=== PATIENT | female | born 1935 | race Caucasian/White ===

== ENCOUNTER 2016-10-22 12:22 | Emergency (ER) | payer OTHER, MEDICAID ==
[~2016-10-22] VITALS: Ht 160 cm; Wt 56.7 kg
[~2016-10-22 12:22] MED LIST: ARI5 PO; GLIPIZIDE5 MG PO; IMDUR60 MG PO; MEMANTINE HCL10 MG; METFORMIN850 M1 PO; SEROQUEL25 MG PO; SIMVASTATIN40 M1 PO; THERAGRAN-M1 TA4 PO; ZESTRIL20 MG PO
[2016-10-22 15:20] VITALS: BP 132/63
== END 2016-10-22 15:20 | disposition home or self-care (01) ==
LOC: ED 12:22
DX: Z04.8 Encounter for examination and observation for other specified reasons (principal)
CPT/HCPCS: Q0092

== ENCOUNTER 2017-02-02 11:55 | Observation (INO) | payer OTHER, MEDICAID ==
[~2017-02-02] VITALS: Ht 149.9 cm; Wt 54.6 kg
[~2017-02-02 11:55] MED LIST changes: -GLIPIZIDE5 MG PO; +GLUCOTROL5 MG PO; +IMD60 PO; -IMDUR60 MG PO; -MEMANTINE HCL10 MG
[2017-02-02 13:01] LABS: BASOPHIL % 0.1 % (0-2); PLATELET COUNT 189 x10^3mcL (130-400); RED CELL DISTRIBUTION WIDTH 13.6 % (11.5-14.5)
[2017-02-02 13:03] LABS: CALCIUM 8.5 mg/dL (8.5-10.1); CARBON DIOXIDE 29.3 mmol/L (21-32); CHLORIDE SERUM 103 mmol/L (98-107); CREATININE SERUM 0.8 mg/dL (0.6-1.0); GLUCOSE SERUM 342 mg/dL (74-106); POTASSIUM SERUM 4.2 mmol/L (3.5-5.1); SODIUM SERUM 140 mmol/L (136-145)
[2017-02-02 13:07] LABS: ALBUMIN 3.6 g/dL (3.4-5.0); ALKALINE PHOSPHATASE 58 U/L (46-116); ALT/SGPT 22 U/L (14-59); AST/SGOT 13 U/L (15-37); LIPASE 104 IU/L (73-393); TOTAL PROTEIN, SERUM 6.8 g/dL (6.4-8.2)
[2017-02-02 17:33] LABS: CHOLESTEROL/HDL RATIO 2.7; MAGNESIUM 1.6 mg/dL (1.8-2.4); PHOSPHOROUS 3.3 mg/dL (2.5-4.9)
[2017-02-02 17:41] LABS: T3 TOTAL 0.97 ng/mL
[2017-02-02 17:43] LABS: FREE T4 1.13 ng/dL (0.76-1.46); FREE THYROXINE INDEX 3.4 ug/dL (1.4-4.5); T4(THYROXINE) 8.6 ug/dL (4.7-13.3)
[2017-02-02 17:44] VITALS: BP 143/41
[2017-02-02 22:03] VITALS: BP 110/41
[2017-02-03 05:25] VITALS: BP 139/49
[2017-02-03 09:00] VITALS: BP 115/47
[2017-02-03 09:40] LABS: BASOPHIL % 0.3 % (0-2); PLATELET COUNT 174 x10^3mcL (130-400); RED CELL DISTRIBUTION WIDTH 14.1 % (11.5-14.5)
[2017-02-03 09:50] LABS: CALCIUM 8.4 mg/dL (8.5-10.1); CARBON DIOXIDE 28.1 mmol/L (21-32); CHLORIDE SERUM 105 mmol/L (98-107); CREATININE SERUM 0.6 mg/dL (0.6-1.0); GLUCOSE SERUM 196 mg/dL (74-106); MAGNESIUM 1.7 mg/dL (1.8-2.4); POTASSIUM SERUM 3.9 mmol/L (3.5-5.1); SODIUM SERUM 138 mmol/L (136-145)
[2017-02-03] MEDS ORDERED: TYL325 PO (16:31)
[2017-02-03 17:14] VITALS: BP 126/48
[2017-02-03] MEDS ORDERED: MEMANTINE HCL10 MG (18:36)
[2017-02-03 18:39] VITALS: BP 126/48
[2017-02-03 18:44] VITALS: BP 126/48
== END 2017-02-03 20:55 | disposition home or self-care (01) | DRG 640 ==
LOC: ED 11:55 → DU 16:51
PROVIDERS: Emergency Medicine; ADMIT Student in an Organized Health Care Education/Training Program
PROC: 0HQ1XZZ Repair Face Skin, External Approach (ICD-10-PCS; principal; 2017-02-02)
DX: E86.0 Dehydration (principal); N17.0 Acute kidney failure with tubular necrosis; D68.69 Other thrombophilia; S01.81XA Laceration without foreign body of other part of head, initial encounter; E11.65 Type 2 diabetes mellitus with hyperglycemia; E83.42 Hypomagnesemia; D63.8 Anemia in other chronic diseases classified elsewhere; Z95.1 Presence of aortocoronary bypass graft; W18.39XA Other fall on same level, initial encounter; Y93.89 Activity, other specified; Y92.012 Bathroom of single-family (private) house as the place of occurrence of the external cause; F03.90 Unspecified dementia, unspecified severity, without behavioral disturbance, psychotic disturbance, mood disturbance, and anxiety
CPT/HCPCS: 82962; 83880; 84439; G0378; J2001; J7030; Q0092

== ENCOUNTER 2017-02-11 13:08 | Emergency (ER) | payer OTHER, MEDICAID ==
[~2017-02-11] VITALS: Ht 149.9 cm; Wt 56.2 kg
[~2017-02-11 13:08] MED LIST changes: +MEMANTINE HCL10 MG; +TYL325 PO
[2017-02-11 14:40] VITALS: BP 135/60
== END 2017-02-11 14:40 | disposition home or self-care (01) ==
LOC: ED 13:08
DX: S01.81XD Laceration without foreign body of other part of head, subsequent encounter (principal); X58.XXXD Exposure to other specified factors, subsequent encounter